=== PATIENT | female | born 1940 | race Caucasian/White ===

== ENCOUNTER 2018-02-05 08:49 | Day surgery (SDC) | payer MEDICARE ==
[2018-02-05] MEDS ORDERED: Sodium Phosphate,Monobasic/Sodium Phosphate,Dibasic Enema 133 ML Bottle RECTAL ONE (09:28)
[2018-02-05] MEDS ORDERED: Lactated Ringers 1,000 ML IV SCH (09:30)
[2018-02-05] MEDS ORDERED: fentaNYL 100 MCG/2 ML SDV ONE (10:33)
[2018-02-05] MEDS ORDERED: Midazolam 1 MG/ML 2 ML SDV ONE (10:33)
[2018-02-05] MEDS ORDERED: Propofol 200 MG/20 ML SDV ONE (10:33)
--- NOTE | 2018-02-06 07:38 | OR ---
DATE OF PROCEDURE: 02/05/2018 PREOPERATIVE DIAGNOSIS: History of colon polyps. POSTOP DIAGNOSIS: Unremarkable colonoscopy. PROCEDURE PERFORMED: Colonoscopy to the cecum. SURGEON: Charlie Kraft MD ANESTHESIA: IV anesthesia with monitored anesthesia care. INDICATION: This 77-year-old white female is referred for a colonoscopy. She says her last colonoscopic exam was done 10 years ago. She also reported that, two colonoscopies ago, she had polyps. I counseled her for a colonoscopy with possible biopsy and/or polypectomy, including risks and alternatives, and she gave her informed consent to proceed. PROCEDURE DETAILS: The patient was placed in the left lateral decubitus position. IV anesthesia was administered by the Anesthesia Service. Time-out was held. A rectal exam was performed, which was unremarkable. The flexible video Olympus colonoscope was introduced through her anus, up her rectum out her colon all the way to the cecum. Once the cecum was reached, the scope was slowly withdrawn, examining the mucosa throughout. No mucosal abnormalities were noted. The scope was retroflexed in the rectum with the distal rectum appearing unremarkable. The scope was straightened and removed. She tolerated the procedure well. Charlie Kraft MD /[id number]
== END 2018-02-05 13:15 | disposition home or self-care (01) ==
LOC: JP.SDS 08:49
PROVIDERS: ATTEND Surgery
DX: Z12.11 Encounter for screening for malignant neoplasm of colon (principal); K21.9 Gastro-esophageal reflux disease without esophagitis; Z86.010 Personal history of colon polyps; Z88.8 Allergy status to other drugs, medicaments and biological substances; Z88.0 Allergy status to penicillin
CPT/HCPCS: 45378; A9270; J2250; J2704; J3010; J7120